=== PATIENT | male | born 1975 | race Caucasian/White ===

== ENCOUNTER 2016-09-16 17:23 | Emergency (ER) | payer OTHER, BC ==
[~2016-09-16] VITALS: Ht 182.9 cm; Wt 100.0 kg
[2016-09-16] MEDS ORDERED: KEFLEX500 MG PO (18:26)
[2016-09-16 19:22] VITALS: BP 134/71
== END 2016-09-16 19:27 | disposition home or self-care (01) ==
LOC: EME 17:23
PROC: 0HQGXZZ Repair Left Hand Skin, External Approach (ICD-10-PCS; principal; 2016-09-16)
DX: S61.412A Laceration without foreign body of left hand, initial encounter (principal); W26.0XXA Contact with knife, initial encounter
CPT/HCPCS: 99281; 99283